=== PATIENT | female | born 1985 | race Caucasian/White ===

== ENCOUNTER → 2017-12-29 | Outpatient (REF) | payer BC ==
[2018-01-02 14:19] LABS: HPV HYBRID CAPTURE II Negative (Negative)
== END ==
LOC: M SFHCWAGY 13:49
DX: Z12.4 Encounter for screening for malignant neoplasm of cervix (principal)
CPT/HCPCS: G0123

== ENCOUNTER → 2018-01-11 | Outpatient (CLI) | payer BC | LOC: M WHC 15:01 | DX: R10.2 Pelvic and perineal pain (principal) | CPT/HCPCS: 76830 ==

== ENCOUNTER → 2018-03-22 | Outpatient (CLI) | payer BC | LOC: M WHC 15:01 | DX: N83.202 Unspecified ovarian cyst, left side (principal) | CPT/HCPCS: 76830 ==

== ENCOUNTER → 2018-06-06 | Outpatient (REF) | payer BC ==
[2018-06-06 20:36] LABS: FREE T4 1.01 NG/DL (0.76-1.46)
== END ==
LOC: M SFHCADAM 13:26
DX: Z86.39 Personal history of other endocrine, nutritional and metabolic disease (principal)
CPT/HCPCS: 84443

== ENCOUNTER → 2019-09-30 | Outpatient (REF) | payer BC ==
[2019-09-30 12:00] LABS: INFLUENZA A AMPLIFICATION NEGATIVE (NEGATIVE); INFLUENZA B AMPLIFICATION POSITIVE (NEGATIVE)
== END ==
LOC: M LAB REF 11:14
PROVIDERS: ATTEND Physician Assistant Medical
DX: J11.1 Influenza due to unidentified influenza virus with other respiratory manifestations (principal)

== ENCOUNTER → 2019-11-22 | Outpatient (REF) | payer BC ==
[2019-11-22 13:33] LABS: FREE T4 1.07 NG/DL (0.76-1.46); THYROID STIMULATING HORMONE 2.76 uIU/ML (0.358-3.740)
== END ==
LOC: M SFHCADAM 10:30
PROVIDERS: ATTEND Physician Assistant
DX: F41.1 Generalized anxiety disorder (principal); Z86.39 Personal history of other endocrine, nutritional and metabolic disease

== ENCOUNTER → 2021-04-07 | Outpatient (REF) | payer BC | LOC: M SFHCWAGY 13:17 | PROVIDERS: ATTEND Nurse Practitioner Women's Health | DX: Z12.4 Encounter for screening for malignant neoplasm of cervix (principal); Z01.419 Encounter for gynecological examination (general) (routine) without abnormal findings; N84.1 Polyp of cervix uteri ==

== ENCOUNTER → 2021-04-21 | Outpatient (CLI) | payer BC ==
--- NOTE | 2021-04-21 15:28 | REP ---
INDICATION: R10.2 PELVIC PAIN COMPARISON: 03/22/2018 TECHNIQUE: Transabdominal pelvic ultrasound followed by transvaginal examination for better evaluation of the endometrium and adnexa with color Doppler evaluation of the ovaries. FINDINGS: Bladder is unremarkable and measures 13.7 x 8.2 x 10.4 cm. Normal anteverted uterus measures 10.5 x 3.7 x 6.1 cm. The endometrial complex measures 11 mm thickness. Small amount of endocervical fluid is nonspecific. No discrete uterine or endometrial abnormalities are appreciated. Bilateral ovaries are normal in appearance and vascularity without evidence for torsion. Right ovary measures 3.6 x 1.8 x 2.5 cm; R I = 0.64. Left ovary measures 3.3 x 2.3 x 2.9 cm; R I = 0.63. No pelvic fluid or adnexal mass lesion. IMPRESSION: Normal pelvic ultrasound. <Electronically signed by Tony Stern > 04/21/21 1521
== END ==
LOC: M WHC 14:23
PROVIDERS: ATTEND Nurse Practitioner Women's Health
DX: R10.2 Pelvic and perineal pain (principal)

== ENCOUNTER → 2021-06-18 | Outpatient (CLI) | payer BC ==
[2021-06-18 16:01] LABS: HEMATOCRIT 40.7 % (36.0-47.0); HEMOGLOBIN 12.8 g/dl (12.0-15.5); MEAN CORPUSCULAR HGB CONC 31.4 g/dl (32.0-36.5); MEAN CORPUSCULAR VOLUME 82.6 fl (80.0-96.0); PLATELET COUNT, AUTOMATED 324 10^3/uL (150-450); RED BLOOD COUNT 4.93 10^6/uL (4.00-5.40); WHITE BLOOD COUNT 9.7 10^3/uL (4.0-10.0)
[2021-06-18 16:40] LABS: ALBUMIN 3.9 GM/DL (3.2-5.2); ALT/SGPT 18 U/L (12-78); BILIRUBIN,TOTAL 0.4 MG/DL (0.2-1.0); BLOOD UREA NITROGEN 7 MG/DL (7-18); CALCIUM LEVEL 9.6 MG/DL (8.5-10.1); CARBON DIOXIDE LEVEL 29 MEQ/L (21-32); CHLORIDE LEVEL 107 MEQ/L (98-107); CREATININE FOR GFR 0.77 MG/DL (0.55-1.30); FREE T4 1.09 NG/DL (0.76-1.46); GLOMERULAR FILTRATION RATE > 60.0 (>60); GLUCOSE, FASTING 79 MG/DL (70-100); POTASSIUM SERUM 4.1 MEQ/L (3.5-5.1); SODIUM LEVEL 140 MEQ/L (136-145); TOTAL PROTEIN 7.3 GM/DL (6.4-8.2)
== END ==
LOC: M PLALAB 12:37
PROVIDERS: ATTEND Physician Assistant
DX: Z86.39 Personal history of other endocrine, nutritional and metabolic disease (principal); F34.1 Dysthymic disorder

== ENCOUNTER → 2023-03-01 | Outpatient (REF) | payer OTHER, MEDICAID ==
[2023-03-01 15:01] LABS: FREE T4 1.03 NG/DL (0.89-1.76); THYROID STIMULATING HORMONE 1.832 uIU/ML (0.55-4.78)
== END ==
LOC: M SFHCADAM 10:23
PROVIDERS: ATTEND Physician Assistant
DX: F41.1 Generalized anxiety disorder (principal); F32.1 Major depressive disorder, single episode, moderate; R79.89 Other specified abnormal findings of blood chemistry

== ENCOUNTER → 2023-11-17 | Outpatient (REF) | payer OTHER, MEDICAID | LOC: M SFHCADAM 10:20 | PROVIDERS: ATTEND Physician Assistant | DX: F32.1 Major depressive disorder, single episode, moderate (principal); G47.33 Obstructive sleep apnea (adult) (pediatric); N92.0 Excessive and frequent menstruation with regular cycle; R53.82 Chronic fatigue, unspecified; Z13.220 Encounter for screening for lipoid disorders ==